=== PATIENT | female | born 1995 | race American Indian/Alaskan Native ===

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

== ENCOUNTER 2017-02-10 13:01 | Outpatient (CLI) | payer MEDICAID ==
[2017-02-10 14:43] LABS: Bilirubin,Urine NEG (Negative); Blood,Urine NEG (Negative); Ketones,Urine NEG (Negative); Leukocyte Esterase,Urine NEG (Negative); Mucus,Urine 2+ /HPF; Nitrite,Urine NEG (Negative); Urobilinogen,Urine < 2.0 mg/dL (<2.0)
[2017-02-10 14:59] LABS: Alanine Aminotransferase 10 units/L (7-56); Lactate Dehydrogenase 206 units/L (91-180)
[2017-02-10 15:20] LABS: Hematocrit 27.3 % (30.3-42.9); Mean Corpuscular HGB Conc 33 % (30-34); Mean Corpuscular Hemoglobin 32 pg (28-32); Mean Corpuscular Volume 98 fl (79-97); Platelet Count 232 K/mm3 (140-440); Red Blood Count 2.79 M/mm3 (3.65-5.03); Red Cell Distribution Width 13.3 % (13.2-15.2); White Blood Count 10.2 K/mm3 (4.5-11.0)
[2017-02-10 15:50] VITALS: BP 128/73
== END 2017-02-10 18:52 | disposition home or self-care (01) ==
LOC: TRG 13:01
PROVIDERS: ATTEND Obstetrics & Gynecology
DX: O36.0130 Maternal care for anti-D [Rh] antibodies, third trimester, not applicable or unspecified (principal); O47.03 False labor before 37 completed weeks of gestation, third trimester; Z3A.36 36 weeks gestation of pregnancy
CPT/HCPCS: 36415; 59025; 81001; 82565; 83615; 84450; 84460; 84550; 85027; 86850; 86900; 86901; 96372; J2790

== ENCOUNTER 2017-07-23 13:11 | Emergency (ER) | payer SELFPAY ==
[2017-07-23 13:20] VITALS: BP 130/70
--- NOTE | 2017-07-23 13:55 | Emergency Department Report ---
Abscess Boil HPI - HPI Chief Complaint: Extremity Injury, Lower Stated Complaint: r foot fb- stepped on a sewing needle Time Seen by Provider: 07/23/17 13:45 Duration: 2 Days Location: Other (foot) Severity: Mild History: Yes Pain, Yes Foreign Body, No Fever, No Purulent Drainage, No Numbness , No Previous History, No Insect Bite Home Medications: Previous Rx's Medication Instructions Recorded Last Taken Type Cephalexin [Keflex] 500 mg PO Q12HR #20 cap 07/23/17 Unknown Rx Allergies/Adverse Reactions: Allergies Allergy/AdvReac Type Severity Reaction Status Date / Time No Known Allergies Allergy Verified 07/14/16 12:13 ED Review of Systems ROS: Stated complaint: RIGHT FOOT PAIN Other details as noted in HPI Comment: All other systems reviewed and negative Skin: other (thinks she stepped on needle and that it is in her foot) ED Past Medical Hx - Past Medical History Hx Hypertension: No Hx Congestive Heart Failure: No Hx Diabetes: No Hx Deep Vein Thrombosis: No Hx Renal Disease: No Hx Sickle Cell Disease: No Hx Seizures: No Hx Asthma: Yes (last episode 3 years ago) Hx COPD: No Hx HIV: No - Surgical History Additional Surgical History: adenoids removed - Social History Smoking Status: Never Smoker Substance Use Type: None - Medications Home Medications: Home Medications Medication Instructions Recorded Confirmed Last Taken Type Cephalexin [Keflex] 500 mg PO Q12HR #20 cap 07/23/17 Unknown Rx ED Abscess Boil Physical Exam - Exam General: Vital signs noted. No distress. Alert and acting appropriately. Exam: Yes Tenderness, Yes Heart Murmur, Yes Normal Circulation, No Fluctuance, No Surrounding Cellulites/Erythema, No Lymphangitis, No Crepitation, No Normal Neurologic Exam ED Course Vital Signs 07/23/17 13:18 Temperature 98 F Pulse Rate 82 Respiratory 16 Rate Blood Pressure 130/70 O2 Sat by Pulse 99 Oximetry - Reevaluation(s) Reevaluation #1: 07/23/17 14:10 to er w fb in heal. discussed with Dr Rowe will not attempt removal here in er pt updated placed on antibiotics to prevent infection tdap utd dc home w dc poc Critical care attestation.: If time is entered above; I have spent that time in minutes in the direct care of this critically ill patient, excluding procedure time. ED Medical Decision Making - Radiology Data Radiology results: image reviewed interpreted by me: fb see note - Medical Decision Making ro fb ED Disposition Clinical Impression: Foreign body (FB) in soft tissue Disposition: DC-01 TO HOME OR SELFCARE Is pt being admited?: No Does the pt Need Aspirin: No Condition: Stable Instructions: Soft Tissue Foreign Body (ED) Additional Instructions: your tetanus is uptodate the needle is in heel but can not be taken out in ER follow up gen surg likely will calcify or work its way out over time motrin or tylenol for pain Prescriptions: Cephalexin [Keflex] 500 mg PO Q12HR #20 cap Referrals: MORENA ROUSE MD [Staff Physician] - 3-5 Days CHEYENNE BOSS MD [Staff Physician] - 3-5 Days Time of Disposition: 13:57
--- NOTE | 2017-07-24 09:57 | XRay Report ---
XRAY RIGHT FOOT THREE VIEWS: 07/23/17 13:11:00 CLINICAL: Stepped on needle. FINDINGS: An 8mm needle fragment is identified in the soft tissue of the heel. The bones and joints are normal. No soft tissue air. IMPRESSION: Needle fragment in the soft tissues of the heel.
== END 2017-07-23 14:24 | disposition home or self-care (01) ==
LOC: ED 13:11
DX: S90.851A Superficial foreign body, right foot, initial encounter (principal); W22.09XA Striking against other stationary object, initial encounter; Y93.89 Activity, other specified; Y92.89 Other specified places as the place of occurrence of the external cause; Y99.8 Other external cause status
CPT/HCPCS: 99283

== ENCOUNTER 2019-01-22 12:39 | Emergency (ER) | payer OTHER ==
--- NOTE | 2019-01-22 13:22 | Emergency Department Report ---
Blank Doc - Documentation Documentation: This is a 23-year-old female that presents with pelvic cramping, vaginal disch arge, and vaginal bleeding. This initial assessment/diagnostic orders/clinical plan/treatment(s) is/are subject to change based on patient's health status, clinical progression and re- assessment by fellow clinical providers in the ED. Further treatment and workup at subsequent clinical providers discretion. Patient/guardians urged not to elope from the ED as their condition may be serious if not clinically assessed and managed. Initial orders include: 1- Patient sent to [facility] for further evaluation and treatment 2- labs 3- pelvic exam 4- UA
[2019-01-22 13:24] VITALS: BP 133/62
[2019-01-22 14:06] LABS: Bilirubin,Urine NEG (Negative); Blood,Urine MOD (Negative); Color,Urine Yellow (Yellow); Protein,Urine <15 mg/dL mg/dL (Negative); Urobilinogen,Urine < 2.0 mg/dL (<2.0); WBC,Urine < 1.0 /HPF (0.0-6.0)
[2019-01-22 15:24] LABS: Basophils # (Auto) 0.1 K/mm3 (0.0-0.1); Basophils % (Auto) 0.6 % (0.0-1.8); Eosinophils # (Auto) 0.1 K/mm3 (0.0-0.4); Eosinophils % (Auto) 0.7 % (0.0-4.3); Hematocrit 38.6 % (30.3-42.9); Hemoglobin 13.1 gm/dl (10.1-14.3); Lymphocytes # (Auto) 2.4 K/mm3 (1.2-5.4); Lymphocytes % (Auto) 24.7 % (13.4-35.0); Mean Corpuscular HGB Conc 34 % (30-34); Mean Corpuscular Volume 98 fl (79-97); Monocytes # (Auto) 0.5 K/mm3 (0.0-0.8); Monocytes % (Auto) 5.3 % (0.0-7.3); Platelet Count 258 K/mm3 (140-440); Red Blood Count 3.93 M/mm3 (3.65-5.03)
[2019-01-22] MEDS ORDERED: FLAGYL PO ONE (16:05)
--- NOTE | 2019-01-22 16:25 | Emergency Department Report ---
ED Female HPI - General Chief complaint: Vaginal Bleeding Stated complaint: BLEEDING FROM CONTROL/POSS STD Time Seen by Provider: 01/22/19 13:21 Source: patient Mode of arrival: Ambulatory Limitations: No Limitations - History of Present Illness Initial comments: This is a 23-year-old female presents to ED complaining of changes to her menstrual bleeding ever since she got her next plan on implant 2 years ago. Patient states that she's been having an vaginal bleeding intermittently for the past 2 years. Patient states occasionally bleeding was stopped for a couple of days but continue. Patient denies fevers/chills/nausea vomiting/pelvic pain - Related Data Previous Rx's Medication Instructions Recorded Last Taken Type cephALEXin [Keflex] 500 mg PO Q12HR #20 cap 07/23/17 Unknown Rx Ibuprofen [Motrin] 600 mg PO Q8H #20 tablet 01/22/19 Unknown Rx Allergies Allergy/AdvReac Type Severity Reaction Status Date / Time No Known Allergies Allergy Verified 07/14/16 12:13 ED Review of Systems ROS: Stated complaint: BLEEDING FROM CONTROL/POSS STD Other details as noted in HPI Comment: All other systems reviewed and negative ED Past Medical Hx - Past Medical History Previous Medical History?: Yes Hx Hypertension: No Hx Congestive Heart Failure: No Hx Diabetes: No Hx Deep Vein Thrombosis: No Hx Renal Disease: No Hx Sickle Cell Disease: No Hx Seizures: No Hx Asthma: Yes (last episode 3 years ago) Hx COPD: No Hx HIV: No - Surgical History Past Surgical History?: Yes Additional Surgical History: adenoids removed - Social History Smoking Status: Current Some Day Smoker Substance Use Type: None - Medications Home Medications: Home Medications Medication Instructions Recorded Confirmed Last Taken Type cephALEXin [Keflex] 500 mg PO Q12HR #20 cap 07/23/17 Unknown Rx Ibuprofen [Motrin] 600 mg PO Q8H #20 tablet 01/22/19 Unknown Rx ED Physical Exam - General Limitations: No Limitations General appearance: alert, in no apparent distress - Head Head exam: Present: atraumatic, normocephalic - Eye Eye exam: Present: normal appearance - ENT ENT exam: Present: mucous membranes moist - Neck Neck exam: Present: normal inspection - Respiratory Respiratory exam: Present: normal lung sounds bilaterally. Absent: respiratory distress - Cardiovascular Cardiovascular Exam: Present: regular rate, normal rhythm. Absent: systolic murmur, diastolic murmur, rubs, gallop - GI/Abdominal GI/Abdominal exam: Present: soft, normal bowel sounds - Extremities Exam Extremities exam: Present: normal inspection - Back Exam Back exam: Present: normal inspection - Neurological Exam Neurological exam: Present: alert, oriented X3 - Psychiatric Psychiatric exam: Present: normal affect, normal mood - Skin Skin exam: Present: warm, dry, intact, normal color. Absent: rash ED Course Vital Signs 01/22/19 13:21 Temperature 98.5 F Pulse Rate 77 Blood Pressure 133/62 ED Medical Decision Making - Lab Data Result diagrams: 01/22/19 15:08 - Medical Decision Making 23-year-old female presents with menorrhagia All labs within normal limits. test negative Discussed findings with the patient. 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 Discussed possible removal of current contraceptive and started near follow-up contraceptive. Vital signs are normal patient is in acute distress. Patient was treated in the ED for yeast and vaginitis due to symptoms. that she is able to get STD screening [facility]. Critical care attestation.: If time is entered above; I have spent that time in minutes in the direct care of this critically ill patient, excluding procedure time. ED Disposition Clinical Impression: Irregular menstrual bleeding Disposition: DC-01 TO HOME OR SELFCARE Is pt being admited?: No Does the pt Need Aspirin: No Condition: Stable Instructions: Menorrhagia (ED) Additional Instructions: Make sure to follow up with the primary care physician as discussed. Take all your medications as you've been prescribed. If you have any worsening symptoms or develop new symptoms please return to ED immediately. Prescriptions: Ibuprofen [Motrin] 600 mg PO Q8H #20 tablet Referrals: MELANIE MOORE MD [Primary Care Provider] - 3-5 Days Forms: Work/School Release Form(ED) Time of Disposition: 16:25
[2019-01-22] MEDS ORDERED: DIFLUCAN PO ONE (17:05)
== END 2019-01-22 17:00 | disposition home or self-care (01) ==
LOC: ED 12:39
DX: N92.6 Irregular menstruation, unspecified (principal); J45.909 Unspecified asthma, uncomplicated; F17.200 Nicotine dependence, unspecified, uncomplicated; Z79.899 Other long term (current) drug therapy
CPT/HCPCS: 36415; 81001; 84703; 85025

== ENCOUNTER 2021-09-07 09:51 | Emergency (ER) | payer SELFPAY | END 2021-09-07 13:24 | disposition left against medical advice (07) | LOC: ED 09:51 | DX: R06.02 Shortness of breath (principal); R51.9 Headache, unspecified; R10.9 Unspecified abdominal pain; Z53.21 Procedure and treatment not carried out due to patient leaving prior to being seen by health care provider ==